=== PATIENT | female | born 1995 | race Caucasian/White ===

== ENCOUNTER 2017-01-22 09:05 | Emergency (ER) | payer OTHER ==
[2017-01-22 09:50] LABS: URINE BILIRUBIN NEGATIVE (NEGATIVE); URINE BLOOD TRACE (NEGATIVE); URINE GLUCOSE (UA) NORMAL (NORMAL); URINE KETONE NEGATIVE (NEGATIVE); URINE LEUKOCYTE ESTERASE 2+ (NEGATIVE); URINE NITRATE NEGATIVE (NEGATIVE); URINE PROTEIN TRACE (NEGATIVE); UROBILINOGEN NORMAL mg/dL (<1.0)
[2017-01-22 10:12] LABS: URINE BACTERIA 2+ (NONE SEEN); URINE MUCUS TRACE; URINE RBC 0-5 /[HPF] (0-2); URINE SQUAMOUS EPITHELIAL CELL 0-10 /[HPF] (NONE SEEN)
== END 2017-01-22 10:38 | disposition home or self-care (01) ==
LOC: ER 09:05
PROVIDERS: Internal Medicine
DX: N39.0 Urinary tract infection, site not specified (principal); R30.0 Dysuria; Z79.899 Other long term (current) drug therapy
CPT/HCPCS: 81001; 81025; 87086; 99070; 99283

== ENCOUNTER 2017-03-04 12:31 | Emergency (ER) | payer OTHER ==
[2017-03-04 12:50] LABS: URINE BILIRUBIN NEGATIVE (NEGATIVE); URINE BLOOD NEGATIVE (NEGATIVE); URINE GLUCOSE (UA) NORMAL (NORMAL); URINE KETONE NEGATIVE (NEGATIVE); URINE LEUKOCYTE ESTERASE TRACE (NEGATIVE); URINE NITRATE NEGATIVE (NEGATIVE); URINE PROTEIN NEGATIVE (NEGATIVE); UROBILINOGEN NORMAL mg/dL (<1.0)
[2017-03-04 13:05] LABS: BASO % 0.4 % (0.1-1.2); EOS # 0.1 10_X3_uL (0.0-0.4); EOS % 2.7 % (0.7-5.8); GRAN # 2.5 10_X3_uL (1.6-6.1); GRAN % 54.9 % (34.0-71.1); HEMATOCRIT 37.3 % (34-45); HEMOGLOBIN 12.9 g/dL (11.2-15.7); LYMPH # 1.6 10_X3_uL (1.2-3.7); LYMPH % 34.7 % (19.3-51.7); MEAN CORPUSCULAR HEMOGLOBIN 30.2 pg (27.0-33.0); MEAN CORPUSCULAR HGB CONC 34.6 g/dL (32.0-36.0); MEAN CORPUSCULAR VOLUME 87.4 fL (79-95); MEAN PLATELET VOLUME 10.6 fl (7.5-11.5); MONO # 0.3 10_X3_uL (0.2-0.9); MONO % 7.3 % (4.7-12.5); PLATELET COUNT 242 x10_3/uL (182-369); RED BLOOD COUNT 4.27 x10_6/uL (3.9-5.2); RED CELL DISTRIBUTION WIDTH 12.9 % (11.7-14.4); WHITE BLOOD COUNT 4.5 x10_3/uL (4.0-10.0)
[2017-03-04 13:07] LABS: URINE BACTERIA 1+ (NONE SEEN); URINE RBC RARE /[HPF] (0-2); URINE SQUAMOUS EPITHELIAL CELL 0-10 /[HPF] (NONE SEEN); URINE WBC 0-5 /[HPF] (0-5)
== END 2017-03-04 13:24 | disposition home or self-care (01) ==
LOC: ER 12:31
PROVIDERS: Family Medicine
DX: N39.0 Urinary tract infection, site not specified (principal); M54.5 Low back pain
CPT/HCPCS: 36415; 81001; 81025; 85025; 87086; 99070; 99283